=== PATIENT | female | born 1960 | race Caucasian/White ===

== ENCOUNTER → 2018-04-09 | Outpatient (CLI) | payer OTHER | LOC: M.RAD 13:09 | DX: Z12.31 Encounter for screening mammogram for malignant neoplasm of breast (principal) ==

== ENCOUNTER → 2018-04-15 | Outpatient (CLI) | payer OTHER | LOC: M.ULTRA 15:08 | DX: N63.10 Unspecified lump in the right breast, unspecified quadrant (principal) ==

== ENCOUNTER → 2018-05-26 | Outpatient (CLI) | payer OTHER ==
[~2018-05-26] MED LIST: ACETAMINOPHEN-1 EAC1 PO; ALBUTEROL2.5 MG/31 INH; AZELASTINE137 MCG/0. NASAL; MEDROLDOSEPACK PO; PROMETHAZINE V120 ML PO; SINGULAIR 10 MG10 M1 PO; SYMBICORT80 MCG/4.1 INH; TESSALON PERLE100 MG PO; ZPAK PO
== END ==
LOC: M.RAD 13:28
DX: R05 Cough (principal); R07.9 Chest pain, unspecified; Z88.2 Allergy status to sulfonamides

== ENCOUNTER 2018-07-05 01:49 | Inpatient (IN) | payer OTHER ==
[~2018-07-05] VITALS: Ht 162.6 cm; Wt 85.7 kg
[2018-07-05 02:02] VITALS: BP 136/68
[2018-07-05 02:12] LABS: ABSOLUTE BASOPHILS 0.1 thou/uL (0.0-0.2); ABSOLUTE LYMPHOCYTES 1.4 thou/uL (0.8-5.3); ABSOLUTE MONOCYTES 0.7 thou/uL (0.0-1.2); BASOPHILS 0.6 %; HEMATOCRIT 43.8 % (37.0-47.0); HEMOGLOBIN 14.7 gm/dL (12.0-15.0); LYMPHOCYTES 15.1 %; MCH 28.8 pg (26.0-34.0); MCHC 33.6 g/dL (28.0-37.0); MCV 85.7 fL (80.0-100.0); MONOCYTES 7.6 %; MPV 8.1 fl. (7.2-11.1); NUCLEATED RBCS 0 /100WBC; PLATELET COUNT* 317 thou/uL (150-400); POLYS 76.7 %; RBC 5.11 mil/uL (4.20-5.00); RDW-CV 15.1 % (10.5-14.5); WBC 9.1 thou/uL (4.0-11.0)
[2018-07-05 02:14] LABS: URINE BILIRUBIN 1+ (Negative); URINE BLOOD NEGATIVE (Negative); URINE CLARITY CLEAR; URINE COLOR YELLOW; URINE GLUCOSE-RANDOM NEGATIVE (Negative); URINE KETONES 3+ (Negative); URINE LEUKOCYTES-REFLEX NEGATIVE (Negative); URINE NITRITE-REFLEX NEGATIVE (Negative); URINE PROTEIN TRACE (Negative); URINE UROBILINOGEN 0.2 E.U./dl (0.2-1.0)
[2018-07-05 02:24] LABS: CALCIUM 7.9 mg/dL (8.5-10.1); CREATININE 0.9 mg/dL (0.6-1.3); POTASSIUM 3.7 mmol/L (3.5-5.1)
[2018-07-05 02:29] LABS: ALBUMIN 2.6 g/dL (3.4-5.0); TOTAL BILIRUBIN 0.6 mg/dL (<0.1-1.0); TOTAL PROTEIN 6.1 g/dL (6.4-8.2)
[2018-07-05] MEDS ORDERED: NORCO 7.5-3251 EACH PO (04:27)
[2018-07-05] MEDS ORDERED: ZOFRAN ODT4 MG PO (04:27)
[2018-07-05] MEDS ORDERED: FLAGYL500 M1 PO (04:27)
[2018-07-05] MEDS ORDERED: CIPROFLOXACIN500 M1 PO (04:27)
[2018-07-05 04:42] LABS: ICTOTEST (BILI CONFIRMATORY) Negative (Negative)
[2018-07-05 05:30] VITALS: BP 112/56
[2018-07-05 06:04] VITALS: BP 117/51
--- NOTE | 2018-07-05 06:14 | NUR ---
PATIENT ARRIVED TO UNIT AT 0540 BY CART FROM ER IN STABLE CONDITION. ADMISSION ROUTINES IN PROGRESS. VITAL SIGNS STABLE WITH LOW-GRADE TEMPERATURE OF 99.6 ORALLY. CURRENTLY NAUSEA IS CONTROLLED WITH MEDS GIVEN IN ER. PATIENT RATING HER ABDOMINAL PAIN 8/10 AFTER MORPHINE AT 0338 AND NOT AVAILABLE UNTIL 0930. PAGE BY KATELYNN TO REQUEST ORDERS FOR PAIN MANAGEMENT. PLAN OF CARE REVIEWED WITH PATIENT WHO VERBALIZES UNDERSTANDING AND IN AGREEMENT. CONTINUE TO MONITOR.
[2018-07-05 10:05] LABS: HEMATOCRIT 38.9 % (37.0-47.0); HEMOGLOBIN 13.1 gm/dL (12.0-15.0); MCH 28.7 pg (26.0-34.0); MCHC 33.6 g/dL (28.0-37.0); MCV 85.6 fL (80.0-100.0); MPV 8.6 fl. (7.2-11.1); NUCLEATED RBCS 0 /100WBC; RBC 4.54 mil/uL (4.20-5.00); RDW-CV 14.9 % (10.5-14.5); WBC 8.3 thou/uL (4.0-11.0)
[2018-07-05 10:07] LABS: PLATELET COUNT* 239 thou/uL (150-400)
[2018-07-05 10:45] LABS: ABSOLUTE LYMPHOCYTES 0.3 thou/uL (0.8-5.3); ABSOLUTE MONOCYTES 0.2 thou/uL (0.0-1.2); ABSOLUTE NEUTROPHILS 7.8 thou/uL (1.6-8.1); PLATELET ESTIMATE ADEQUATE
[2018-07-05 15:44] VITALS: BP 98/52
--- NOTE | 2018-07-05 17:12 | NUR ---
PATIENT ALERT AND ORIENTED X 4. VITAL SIGNS STABLE ON ROOM AIR. UP INDEPENDENTLY IN ROOM. RESTED COMFORTABLE MOST OF THE DAY. IV PATENT WITH FLUIDS INFUSING PER MAR. DENIES PAIN AT THIS TIME. NAUSEA BEING MANAGED WITH IV MEDICATION. HOURLY ROUNDS MAINTAINED THROUGHOUT THE SHIFT. CALL LIGHT WITHIN REACH. NURSING WILL CONTINUE TO MONITOR.
[2018-07-05 20:00] VITALS: BP 100/56
[2018-07-06 04:21] LABS: CALCIUM 7.7 mg/dL (8.5-10.1); CREATININE 0.7 mg/dL (0.6-1.3); POTASSIUM 3.8 mmol/L (3.5-5.1)
--- NOTE | 2018-07-06 05:34 | NUR ---
ASSUMED PT CARE AT 1930. PT ALERT AND ORIENTED X4, POLITE AND COOPERATIVE WITH CARES. PT C/O NAUSEA, ZOFRAN GIVEN. MORPHINE GIVEN ONCE FOR ABDOMINAL PAIN. MELATONIN PER PT REQUEST. IV INFUSING TO LEFT AC WITHOUT DIFFICULTY. IV ABX INFUSED PER ORDER. USES CALL LIGHT APPROPRIATELY. CALL LIGHT AND FREQUENTLY USED ITEMS WITHIN REACH. HOURLY ROUNDING IN PROGRESS, WILL CONTINUE TO MONITOR.
[2018-07-06 15:59] VITALS: BP 115/60
--- NOTE | 2018-07-06 18:44 | NUR ---
PATIENT ALERT AND ORIENTED X 4. VITAL SIGNS STABLE ON ROOM AIR. UP INDEPENDENTLY IN ROOM. IV PATENT WITH FLUIDS INFUSING. PAIN AND NAUSEA BEING MANAGED WITH MEDICATION. HOURLY ROUNDS MAINTAINED THROUGHOUT THE SHIFT. CALL LIGHT WITHIN REACH. NURSING WILL CONTINUE TO MONITOR.
[2018-07-06 20:00] VITALS: BP 103/46
--- NOTE | 2018-07-07 05:39 | NUR ---
ASSUMED PT CARE AT 1930, PT ALERT AND ORIENTED X4, POLITE AND COOPERATIVE WITH CARES. IV ABX INFUSED, THEN PT COMPLAINED OF IV SITE PAIN AND SWELLING. IV DISCONTINUED, PER DR. RODRIGES IV CAN STAY OUT AND BE REASSESED THIS MORNING. FLAGYL CHANGED TO PO. TYLENOL ONCE THIS SHIFT FOR PAIN. MO C/O NAUSEA. PT UP AD JOSHUA TO BATHROOM. PT ANTICIPATING DISCHARGE TODAY. USES CALL LIGHT APPROPRIATELY. CALL LIGHT AND FREQUENTLY USED ITEMS WITHIN REACH. HOURLY ROUNDING IN PROGRESS, WILL CONTINUE TO MONITOR.
[2018-07-07 08:00] VITALS: BP 107/57
[2018-07-07 10:36] VITALS: BP 107/57
[2018-07-07] MEDS ORDERED: TYLENOL EXTRA500 MG PO (10:46)
[2018-07-07] MEDS ORDERED: IBUPROFEN 800800 M1 PO (10:47)
[2018-07-07] MEDS ORDERED: AUGMENTIN 875-1 EACH PO (10:50)
--- NOTE | 2018-07-07 11:42 | NUR ---
PT DISCHARGED WITH NURSING STAFF BY WHEELCHAIR AT 1142. PICKED HER UP. PAPER PRESCRIPTIONS AND CARE NOTES GIVEN. NO IV. PT STABLE UPON DISCHARGE. PERSONAL BELONGINGS SENT WITH PT
== END 2018-07-07 11:40 | disposition home or self-care (01) | DRG 392 ==
LOC: M.ERS 01:49 → M.ORTHSURG 04:55 → M.TBA-ER 04:55 → M.ORTHSURG 05:35
PROVIDERS: Emergency Medicine; ADMIT Internal Medicine
DX: K52.9 Noninfective gastroenteritis and colitis, unspecified (principal); G43.909 Migraine, unspecified, not intractable, without status migrainosus; E86.0 Dehydration; J45.909 Unspecified asthma, uncomplicated; Z88.2 Allergy status to sulfonamides

== ENCOUNTER → 2018-10-14 | Outpatient (CLI) | payer OTHER ==
[~2018-10-14] MED LIST changes: +AUGMENTIN 875-1 EACH PO; +CIPROFLOXACIN500 M1 PO; +FLAGYL500 M1 PO; +IBUPROFEN 800800 M1 PO; +NORCO 7.5-3251 EACH PO; +TYLENOL EXTRA500 MG PO; +ZOFRAN ODT4 MG PO
[2018-10-14 13:06] LABS: ABSOLUTE BASOPHILS 0.1 thou/uL (0.0-0.2); ABSOLUTE EOSINOPHILS 0.3 thou/uL (0.0-0.7); ABSOLUTE LYMPHOCYTES 1.7 thou/uL (0.8-5.3); ABSOLUTE MONOCYTES 0.3 thou/uL (0.0-1.2); ABSOLUTE NEUTROPHILS 2.8 thou/uL (1.6-8.1); BASOPHILS 1.5 %; EOSINOPHILS 5.6 %; HEMATOCRIT 37.3 % (37.0-47.0); HEMOGLOBIN 12.4 gm/dL (12.0-15.0); LYMPHOCYTES 32.3 %; MCH 28.8 pg (26.0-34.0); MCHC 33.2 g/dL (28.0-37.0); MCV 86.8 fL (80.0-100.0); MONOCYTES 5.6 %; NUCLEATED RBCS 0 /100WBC; PLATELET COUNT* 293 thou/uL (150-400); RBC 4.29 mil/uL (4.20-5.00); RDW-CV 14.5 % (10.5-14.5); WBC 5.1 thou/uL (4.0-11.0)
[2018-10-14 13:30] LABS: ALBUMIN 3.4 g/dL (3.4-5.0); CALCIUM 8.8 mg/dL (8.5-10.1); CREATININE 0.7 mg/dL (0.6-1.3); TOTAL BILIRUBIN 0.5 mg/dL (<0.1-1.0); TOTAL PROTEIN 7.1 g/dL (6.4-8.2)
[2018-10-14 14:21] LABS: ESR (SEDRATE) 20 mm/hr (0-30)
== END ==
LOC: M.LAB 11:19
PROVIDERS: Internal Medicine Gastroenterology
DX: R10.12 Left upper quadrant pain (principal)

== ENCOUNTER → 2019-02-13 | Outpatient (CLI) | payer OTHER ==
[2019-02-13 08:16] LABS: ABSOLUTE EOSINOPHILS 0.2 thou/uL (0.0-0.7); ABSOLUTE LYMPHOCYTES 1.5 thou/uL (0.8-5.3); ABSOLUTE MONOCYTES 0.3 thou/uL (0.0-1.2); BASOPHILS 0.8 %; EOSINOPHILS 4.7 %; HEMATOCRIT 37.9 % (37.0-47.0); HEMOGLOBIN 12.5 gm/dL (12.0-15.0); LYMPHOCYTES 30.3 %; MCH 28.4 pg (26.0-34.0); MCHC 32.9 g/dL (28.0-37.0); MCV 86.3 fL (80.0-100.0); MONOCYTES 6.1 %; MPV 7.6 fl. (7.2-11.1); NUCLEATED RBCS 0 /100WBC; PLATELET COUNT* 317 thou/uL (150-400); POLYS 58.1 %; RBC 4.39 mil/uL (4.20-5.00); RDW-CV 14.1 % (10.5-14.5); WBC 5.1 thou/uL (4.0-11.0)
[2019-02-13 08:31] LABS: ALBUMIN 3.4 g/dL (3.4-5.0); CALCIUM 9.6 mg/dL (8.5-10.1); CREATININE 0.7 mg/dL (0.6-1.3); POTASSIUM 4.2 mmol/L (3.5-5.1); TOTAL BILIRUBIN 0.4 mg/dL (<0.1-1.0); TOTAL PROTEIN 7.2 g/dL (6.4-8.2)
[2019-02-13 09:21] LABS: ESR (SEDRATE) 29 mm/hr (0-30)
== END ==
LOC: M.ULTRA 02-02 09:00 → M.CT 02-02 11:30 → M.ULTRA 06:52
PROVIDERS: Internal Medicine Gastroenterology
DX: K80.20 Calculus of gallbladder without cholecystitis without obstruction (principal); K56.41 Fecal impaction

== ENCOUNTER → 2019-03-20 | Day surgery (SDC) | payer OTHER ==
[~2019-03-20] MED LIST changes: +ADULT ASPIRIN R81 MG PO; +OMEPRAZOLE40 MG PO
--- NOTE | 2019-03-23 15:07 | PATH ---
[address] [address] PATHOLOGY RPT PROCEDURE Name: JUANFRANCES MONCADA Room: [facility].#: [id number] Admission: 03/20/19 Date of : 60 Discharge: Report #: [id number] Path Case #: [id number] LCA Accession Number: [id number] . 01 Material submitted: . gallbladder - GALLBLADDER . 01 Clinical history: . Cholelithiasis . 02 Diagnosis: Gallbladder: - Chronic cholecystitis and cholelithiasis. (AZEEM/db; 03/23/2019) LBQ 03/23/2019 1153 Local . 02 Electronically signed: . Raman aT MD, Pathologist NPI- [id number] . 01 Gross description: . The specimen is received in formalin, labeled "Frances Corley, gallbladder". Received is an intact gallbladder measuring 5.9 x 2.7 x 2.5 cm in greatest dimensions displaying a blue-malave serosal surface. Opening the specimen reveals a velvety, bile-stained mucosa with a gallbladder wall thickness of 0.1 cm. A single black, nodular calculus is present, and no masses or lesions are noted grossly. Order Tracer sections, to include the proximal margin, are submitted in cassette A1. (CAA; 03/20/2019) QAC/QAC 03/20/2019 1841 Local . 02 Pathologist provided ICD-10: K80.10 . 02 CPT . 822424 Specimen Comment: A courtesy copy of this report has been sent to [phone], [phone] Specimen Comment: [phone], Specimen Comment: Report sent to , and Performed at: [address], [place], [place] [id number] MD Eloy Patel MD Phone: [phone] Performed at: 02 [facility] [address], [place], [place] [id number] MD Raman Ta MD Phone: [phone]
--- NOTE | 2019-03-25 09:28 | OP ---
[address] [address] OPERATIVE REPORT Name: MATILDE MARTINEZ CORAL Room: [facility].#: [id number] Admission: 03/20/19 Attend Phys: Diana Marie DO Discharge: Date of : 60 Report #: [id number] THIS REPORT FOR: //name// CC: Diana Grajeda DO DICTATED BY: Trery Da Silva DO DATE OF SERVICE: 03/20/2019 PREOPERATIVE DIAGNOSIS: Symptomatic cholelithiasis. POSTOPERATIVE DIAGNOSIS: Chronic cholecystitis and symptomatic cholelithiasis. SURGEON: Diana Marie DO ANODISER: Sami Da Silva, PGY5 OPERATION PERFORMED: Micro laparoscopic cholecystectomy. ANESTHESIA: General and local. ESTIMATED BLOOD LOSS: 5 mL. SPECIMENS: Gallbladder and contents. COMPLICATIONS: None. DISPOSITION: PACU to home. FINDINGS: Some omental adhesions to the anterior side of the gallbladder and a small palpable gallstone within the gallbladder. DESCRIPTION OF PROCEDURE: After the appropriate consents were obtained, the patient was taken to the operating room, laid in supine position. She had SCDs placed on her bilateral lower extremities and a safety strap placed across her lap. Her right arm was tucked at her side. Her left arm was placed out. The patient was secured to the bed with a footboard. All lines were placed by Anesthesia. She was sedated and intubated by Anesthesia without difficulty. Her abdomen was exposed, prepped and draped in a standard sterile fashion. A timeout was performed to correctly identify the patient and procedure. She was given perioperative antibiotics at this time. We started at the infraumbilical site at previous incision from a prior surgery and use 0.5% Marcaine for local anesthesia. Using 11 blade scalpel between 2 Adson graspers, [place] [id number] OPERATIVE REPORT Name: MATILDE MARTINEZ CORAL [facility] [id number] Admission: 03/20/19 Attend Phys: Diana Marie, Discharge: Date of : 60 Report #: [id number] incision. This was carried down through subcutaneous tissue and to encounter the anterior abdominal wall fascia. Once the fascia was encountered, it was grasped and elevated between 2 Jean clamps. The fascia was then incised using electrocautery. We entered the patient's abdominal cavity bluntly using hemostat. A finger was used to sweep the anterior abdominal wall to ensure there were no noble-incisional adhesions, none were present. We placed 2 separate 0 Vicryl stitches on either side of the fascia. The 10 mm Elis trocar was then introduced into the patient's abdomen. The camera was then introduced as well and her abdomen was insufflated to 15 mmHg. The patient was placed in a head up, left side down position. We were able to visualize the gallbladder, which was apparently having some omental adhesions over it. We placed a 5 mm subxiphoid port under direct visualization. Using a blunt grasper to grasp and elevate the gallbladder, which had previously seen omental adhesions along the anterior aspect. We then placed our two right-sided lateral abdominal wall ports, which were micro ports approximately 2 mm in size. These were placed without difficulty and under direct visualization. We started by grasping the gallbladder fundus and retracted cephalad anteriorly and then we took down the anterior omental adhesions using electrocautery and blunt dissection. We were able to take this down and visualize Ale's pouch. Once Ale's pouch was visualized and it was grasped and retracted medially and we were able to start on the lateral aspect of the gallbladder. We did this and cared the peritoneum of the liver edge, and we were able to dissect out the lateral side of the cystic duct. We obviously saw a small cystic duct going directly into the gallbladder. We turned our attention more medially in order to skeletonize the cystic duct. There was a small cystic artery running with the cystic duct, which was taken with electrocautery. We dissected that further out laterally along the lower edge of the gallbladder, unable to visualize the cystic plate and then we were not able to visualize any further artery going into the gallbladder. We elected to place clips at this time. We placed 4 clips proximally and one clip distally on the cystic duct and then we placed 2 clips proximally on the cystic artery. There was no bleeding or oozing from the duct or the artery after this. We then used laparoscopic scissors to transect the duct and again, there was no bleeding or oozing from the duct or the artery. Prior to cutting duct and artery we were able to obtain our critical view of safety and visualizing 2 and only two structures going directly into the gallbladder. We then further removed the gallbladder from the liver plate using electrocautery. This was done without difficulty and there was a minimal amount of bleeding from the superior edge of the liver, which was adequately controlled using electrocautery. At the completion of the dissection, we then placed the gallbladder within EndoCatch pouch. We then further inspected our liver bed as well as our clips. The liver bed appeared to be dry and the clips were in place without any bleeding or oozing from the duct or the artery. We allowed the patient's abdomen to desufflate as we visualized the artery to ensure there was no further bleeding and none was present. The patient's abdomen was then reinsufflated and we removed the trocars under direct visualization and there was no bleeding or oozing from the trocar sites. The patient's abdomen was [address] [address] OPERATIVE REPORT Name: MATILDE MARTINEZ [facility] [id number] Admission: 03/20/19 Attend Phys: Diana Marie DO Discharge: Date of : 60 Report #: [id number] allowed to completely desufflate and removed the gallbladder from the inferior umbilical incision site without difficulty. This was passed off as specimen to be sent to pathology for further review. Using the previously placed 0 Vicryl stitches, the fascia was elevated and grasped again with 2 Jean clamps. The stitches were removed and we placed a 0 Vicryl [id number] stitch to reapproximate the fascia. A finger was used within our defect to ensure there were no intraabdominal contents, within our incision and this was tied down completely. We then injected the fascia using 0.5% Marcaine. The skin was closed using a running 4-0 Monocryl in subcuticular fashion. The subxiphoid port was closed using the same 4-0 Monocryl stitch in a simple inverted interrupted fashion. The 2 mm right lateral abdominal ports were closed using Steri-Strips. The patient's abdomen was then cleaned and dried adequately and Mastisol and Steri-Strips were applied to each of the incisions. We placed a gauze and Tegaderm over each incision site as well. The patient tolerated the procedure well. All counts were correct x 2 at the end of the procedure. Dr. Marie was present and scrubbed for the entirety of this procedure. <ELECTRONICALLY SIGNED> By: Diana Marie DO 03/25/19 0928 1212 1247Chrissahara Marie DO /nt
== END | disposition home or self-care (01) ==
LOC: M.SUR 06:22
DX: K80.10 Calculus of gallbladder with chronic cholecystitis without obstruction (principal); G43.909 Migraine, unspecified, not intractable, without status migrainosus; J45.909 Unspecified asthma, uncomplicated; Z98.890 Other specified postprocedural states; Z88.2 Allergy status to sulfonamides; Z79.899 Other long term (current) drug therapy

== ENCOUNTER → 2020-04-06 | Outpatient (CLI) | payer OTHER | LOC: M.ULTRA 11:10 | PROVIDERS: ATTEND Nurse Practitioner Family | DX: M79.89 Other specified soft tissue disorders (principal); M79.661 Pain in right lower leg ==

== ENCOUNTER → 2020-04-26 | Outpatient (CLI) | payer OTHER ==
[2020-04-26 11:04] LABS: ABSOLUTE BASOPHILS 0.1 thou/uL (0.0-0.2); ABSOLUTE EOSINOPHILS 0.3 thou/uL (0.0-0.7); ABSOLUTE LYMPHOCYTES 1.5 thou/uL (0.8-5.3); ABSOLUTE MONOCYTES 0.3 thou/uL (0.0-1.2); ABSOLUTE NEUTROPHILS 3.1 thou/uL (1.6-8.1); BASOPHILS 1.1 %; EOSINOPHILS 5.3 %; HEMOGLOBIN 12.6 gm/dL (12.0-15.0); LYMPHOCYTES 28.1 %; MCH 28.8 pg (26.0-34.0); MCV 87.3 fL (80.0-100.0); MONOCYTES 5.9 %; MPV 7.7 fl. (7.2-11.1); NUCLEATED RBCS 0 /100WBC; PLATELET COUNT* 327 thou/uL (150-400); POLYS 59.6 %; RBC 4.36 mil/uL (4.20-5.00); RDW-CV 14.9 % (10.5-14.5); WBC 5.3 thou/uL (4.0-11.0)
[2020-04-26 11:38] LABS: ALBUMIN 3.4 g/dL (3.4-5.0); ALKALINE PHOSPHATASE 104 U/L (46-116); ANION GAP 6 mmol/L (7-16); BUN 11 mg/dL (7-18); CALCIUM 9.2 mg/dL (8.5-10.1); CHLORIDE 102 mmol/L (98-107); CHOLESTEROL 242 mg/dL (<200); CO2 32 mmol/L (21-32); CREATININE 0.8 mg/dL (0.6-1.3); GLUCOSE 97 mg/dL (70-99); HDL CHOLESTEROL 100 mg/dL (>40); LDL CHOLESTEROL 130 mg/dL (<100); SERUM ASSESSMENT Clear; SGOT 23 U/L (15-37); SGPT 36 U/L (30-65); SODIUM 140 mmol/L (136-145); TC:HDL 2.4 Ratio (Not establshd); TOTAL BILIRUBIN 0.5 mg/dL (<0.1-1.0); TOTAL PROTEIN 7.2 g/dL (6.4-8.2); TRIGLYCERIDE 64 mg/dL (<150); VLDL 13 mg/dL (<40)
[2020-04-27 02:06] LABS: GLYCOHEMOGLOBIN (HGB A1C) 5.6 % (4.8-5.6)
== END ==
LOC: M.LAB 10:45
PROVIDERS: ATTEND Family Medicine
DX: Z00.00 Encounter for general adult medical examination without abnormal findings (principal); J45.40 Moderate persistent asthma, uncomplicated